=== PATIENT | female | born 1995 | race Caucasian/White ===

== ENCOUNTER 2019-09-28 19:49 | Emergency (ER) | payer MEDICAID ==
[~2019-09-28] VITALS: Ht 160 cm; Wt 77.1 kg
[2019-09-28 20:57] VITALS: BP_SYST 129
--- NOTE | 2019-09-28 20:59 | NUR ---
Patient triaged and placed in waiting room. VSS and patient appears in no acute distress at this time. Accompanied by self, awaiting available bed, and MD notified of need for MSE.
--- NOTE | 2019-09-28 22:30 | NUR ---
Patient to ER bed 6 to gown for evaluation. Side rails up.
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
--- NOTE | 2019-09-28 22:42 | NUR ---
PHUC Ramirez at bedside examining patient.
[2019-09-28] MEDS ORDERED: ONDANSETRON 4 MG ODT TAB PO ONE (22:45)
[2019-09-28] MEDS ORDERED: KETOROLAC TROMETHAMINE 30 MG VIAL IM ONE (22:45)
--- NOTE | 2019-09-28 23:03 | NUR ---
Patient refused Toradol injection. Dr. Ramirez made aware.
[2019-09-28 23:47] VITALS: BP_SYST 126
--- NOTE | 2019-09-28 23:47 | NUR ---
Patient given written and verbal discharge instructions and verbalizes understanding. ER MD discussed with patient the results and treatment provided. Patient in stable condition. ID arm band removed. No Rx given. Patient educated on pain management and to follow up with PMD. Pain Scale 0/10. Opportunity for questions provided and answered.
== END 2019-09-28 23:47 | disposition home or self-care (01) ==
LOC: SED 19:49
DX: S06.0X0A Concussion without loss of consciousness, initial encounter (principal); M25.562 Pain in left knee; M25.462 Effusion, left knee; Z88.2 Allergy status to sulfonamides; Z88.8 Allergy status to other drugs, medicaments and biological substances; V86.96XA Unspecified occupant of dirt bike or motor/cross bike injured in nontraffic accident, initial encounter; Y93.89 Activity, other specified; Y92.413 State road as the place of occurrence of the external cause; Y99.8 Other external cause status
CPT/HCPCS: 70450; 73564; 81025; 99284; J1885; Q0162